=== PATIENT | female | born 1980 | race Caucasian/White ===

== ENCOUNTER 2018-01-10 15:26 | Emergency (ER) | payer MEDICAID ==
[2018-01-10 15:56] VITALS: BP 137/83; PULSE 93; RESP 16; TEMP 98.5; O2SAT 99
--- NOTE | 2018-01-10 17:44 | RADRPT ---
EXAM DATE/TIME: 01/10/2018 17:13 [facility] COMPARISON: No previous studies available for comparison. INDICATIONS : Right leg pain. MEDICAL HISTORY : Bilateral hip pain. Right leg pain and numbness. SURGICAL HISTORY : None. ENCOUNTER: Initial ACUITY: 1 day PAIN SCORE: 4/10 LOCATION: Right leg. TECHNIQUE: Venous ultrasound of the leg was performed from the inguinal ligament to the proximal calf. Real-basia e, color Doppler and spectral tracing, compression and augmentation techniques were used. FINDINGS: There is normal compressibility of the deep venous system from the inguinal region to the proximal ca lf. No echogenic clot is seen in the lumen of the common femoral, femoral, popliteal, and posterior tibial veins. There is a normal response of the venous system to proximal and distal augmentation an d respiration. CONCLUSION: 1. No DVT identified. 2. Incidental note made of a mildly enlarged node within the groin. Node measures 2.3 x 1.3 x 0.7 CM. Joe Lay MD on January 10, 2018 at 17:40 Board Certified Radiologist. This report was verified electronically.
--- NOTE | 2018-01-10 18:26 | PD ---
HPI Chief Complaint: Pain: Acute or Chronic Time Seen by Provider: 18:25 Travel History International Travel<30 days: No Contact w/Intl Traveler<30days: No Traveled to known affect area: No History of Present Illness HPI 37-year-old female came to the emergency room with history of right leg swelling and pain. Patient says she has history of avascular necrosis of her hip and has been dealing with it for years. But what really concerned her this time was the fact that the leg was swollen. She has never had this swelling before. She also has history of severe knee joint arthritis in that leg. Her knee hurts. Vital signs otherwise stable. No history of fever or chills. There was an ultrasound to rule out DVT ordered from triage. Pain is worse upon walking. It is mostly in the knee area and radiating up to the thigh. No history of chest pain or shortness of breath. No history of trauma or injury PFSH Past Medical History Narrative Medical List of her past medical, surgical, social and family history is reviewed from the nursing note. Social History Tobacco Use: Yes Allergies-Medications (Allergen,Severity, Reaction): Coded Allergies: clindamycin (Verified Allergy, Unknown, 01/10/18) Comments List of her allergies reviewed from the nursing note. Reported Meds & Prescriptions Reported Meds & Active Scripts Active Ibuprofen 600 Mg Tab 600 Mg PO Q6H PRN Medrol Dosepak (Methylprednisolone) 4 Mg Dspk 4 Mg PO DIRECTED Per Pharmacist direction Reported Zoloft (Sertraline HCl) 100 Mg Tab 150 Mg PO DAILY Narrative Medication List of her home medications reviewed from the nursing note. Review of Systems Except as stated in HPI: all other systems reviewed are Neg Musculoskeletal: Positive: Pain Physical Exam Narrative GENERAL: Awake, alert, mildest SKIN: Focused skin assessment warm/dry. HEAD: Atraumatic. Normocephalic. EYES: Pupils equal and round. No scleral icterus. No injection or drainage. ENT: No nasal bleeding or discharge. Mucous membranes pink and moist. NECK: Trachea midline. No JVD. CARDIOVASCULAR: Regular rate and rhythm. No murmur appreciated. RESPIRATORY: No accessory muscle use. Clear to auscultation. Breath sounds equal bilaterally. GASTROINTESTINAL: Abdomen soft, non-tender, nondistended. Hepatic and splenic margins not palpable. MUSCULOSKELETAL: No obvious deformities. No clubbing. No cyanosis. No edema. Right knee appears to be swollen but no erythema or warmth of the skin. Decreased range of motion due to the pain NEUROLOGICAL: Awake and alert. No obvious cranial nerve deficits. Motor grossly within normal limits. Normal speech. PSYCHIATRIC: Appropriate mood and affect; insight and judgment normal. Data Data Last Documented VS Vital Signs Date Time Temp Pulse Resp B/P (MAP) Pulse Ox O2 Delivery O2 Flow Rate FiO2 01/10/18 20:06 01/10/18 19:10 70 15 01/10/18 19:10 100 Room Air 01/10/18 15:56 98.5 Orders Orders Us Leg Venous Doppler (01/10/18 ) Knee, Complete (4vws) (01/10/18 ) Ketorolac Inj (Toradol Inj) (01/10/18 18:45) Ed Discharge Order (01/10/18 19:42) [facility] Medical Decision Making Medical Screen Exam Complete: Yes Emergency Medical Condition: Yes Medical Record Reviewed: Yes Differential Diagnosis Knee joint effusion, DVT, arthritis flareup Narrative Course 7:12 PM the ultrasound was negative for DVT. I have ordered for a knee x-ray and patient is getting IM Toradol. Awaiting for the x-ray report. 8 PM xray shows osteoarthritis. She will be discharged home on prescriptions. Diagnosis Primary Impression: Arthritis Additional Impression: Leg pain, right Referrals: [facility] 1 week Additional Instructions: Take the medication as per the prescription direction. Follow-up with your primary care or you could go to [facility] whose name and number been provided to you in this discharge instruction. Put warm compresses alternating with cold compress on the knee for swelling and pain relief. Med/Other Pt SpecificInfo: Prescription(s) given Scripts Ibuprofen (Ibuprofen) 600 Mg Tab 600 MG PO Q6H Y for Pain/Inflammation, #40 TAB 0 Refills Prov: Ashkan Cope MD 01/10/18 Methylprednisolone Dosepak (Medrol Dosepak) 4 Mg Dspk 4 MG PO DIRECTED, #1 DSPK 0 Refills Per Pharmacist direction Prov: Ashkan Cope MD 01/10/18 Disposition: 01 DISCHARGE HOME Condition: Stable Ashkan Cope MD Jan 10, 2018 18:26
[2018-01-10] MEDS ORDERED: ZOLO100T PO (18:34)
[2018-01-10] MEDS ORDERED: KETOROLAC TROMETHAMINE 60 MG/2 ML (IM) VIAL IM ONE (18:45)
[2018-01-10 19:10] VITALS: BP 123/89; PULSE 67; RESP 15; O2SAT 100
--- NOTE | 2018-01-10 19:21 | RADRPT ---
EXAM DATE/TIME: 01/10/2018 18:57 [facility] COMPARISON: No previous studies available for comparison. INDICATIONS : Pain and swelling right knee, denies injury MEDICAL HISTORY : Torn ACL right knee SURGICAL HISTORY : ACL repair right knee, menicus surgeries ENCOUNTER: Initial ACUITY: 1 day PAIN SCORE: 8/10 LOCATION: Right Knee FINDINGS: Four view examination of the right knee demonstrates previous ACL repair. No acute fracture or disloc ation. Trace joint fluid. CONCLUSION: 1. Previous ACL repair with hardware in the distal femur. No acute bony abnormality. Mild to moderate osteoarthritis at the right knee. Leonard Pruett MD on January 10, 2018 at 19:18 Board Certified Radiologist. This report was verified electronically.
[2018-01-10] MEDS ORDERED: IBUP-232 PO (19:42)
[2018-01-10] MEDS ORDERED: MEDR4PAK PO (19:42)
== END 2018-01-10 21:26 | disposition home or self-care (01) ==
LOC: NEPD 15:26
DX: M17.11 Unilateral primary osteoarthritis, right knee (principal); M79.604 Pain in right leg; Z72.0 Tobacco use
CPT/HCPCS: 73564; 93971; 96372; 99284; J1885